=== PATIENT | female | born 1955 | race Caucasian/White ===

== ENCOUNTER 2017-12-02 09:26 | Day surgery (SDC) | payer OTHER ==
[~2017-12-02] VITALS: Ht 170.2 cm; Wt 78.9 kg
[2017-12-02] MEDS ORDERED: CYMBALTA 60MG60 MG PO (10:41)
[2017-12-02] MEDS ORDERED: ARMOUR THYROID60 MG PO (10:42)
[2017-12-02] MEDS ORDERED: TURMERIC500 MG PO (10:42)
[2017-12-02] MEDS ORDERED: LUTEIN20 M1 PO (10:43)
[2017-12-02] MEDS ORDERED: MAGNESIUM250 M1 PO (10:44)
[2017-12-02] MEDS ORDERED: MULTIPLE VITAMI1 TA1 PO (10:45)
[2017-12-02 10:46] VITALS: BP 146/91; PULSE 66; TEMP 97.6
[2017-12-02] MEDS ORDERED: NORCO 325 MG-51 TAB PO (14:02)
[2017-12-02 14:35] VITALS: BP 141/80; PULSE 75; TEMP 97.9
[2017-12-02 14:46] VITALS: TEMP 97.6
[2017-12-02 14:50] VITALS: BP 138/78; PULSE 76
[2017-12-02 15:05] VITALS: BP 134/93; PULSE 82
[2017-12-02 15:20] VITALS: BP 136/87; PULSE 81
== END 2017-12-02 15:30 | disposition home or self-care (01) ==
LOC: SDCO 09:26
DX: D17.24 Benign lipomatous neoplasm of skin and subcutaneous tissue of left leg (principal); D17.23 Benign lipomatous neoplasm of skin and subcutaneous tissue of right leg; D17.21 Benign lipomatous neoplasm of skin and subcutaneous tissue of right arm; D17.22 Benign lipomatous neoplasm of skin and subcutaneous tissue of left arm; G89.29 Other chronic pain; E03.9 Hypothyroidism, unspecified; G43.909 Migraine, unspecified, not intractable, without status migrainosus; M19.90 Unspecified osteoarthritis, unspecified site; F32.9 Major depressive disorder, single episode, unspecified; M79.7 Fibromyalgia; Z83.3 Family history of diabetes mellitus; Z80.7 Family history of other malignant neoplasms of lymphoid, hematopoietic and related tissues
CPT/HCPCS: J0690; J1100; J2405; J2704; J3010; J7120

== ENCOUNTER → 2017-12-22 | Outpatient (CLI) | payer OTHER ==
[~2017-12-22] MED LIST: ARMOUR THYROID60 MG PO; CYMBALTA 60MG60 MG PO; LUTEIN20 M1 PO; MAGNESIUM250 M1 PO; MULTIPLE VITAMI1 TA1 PO; NORCO 325 MG-51 TAB PO; TURMERIC500 MG PO
== END ==
LOC: MC.RAD 09:35
DX: Z12.31 Encounter for screening mammogram for malignant neoplasm of breast (principal)

== ENCOUNTER → 2018-12-22 | Outpatient (CLI) | payer MEDICARE | LOC: MC.RAD 09:52 | DX: Z12.31 Encounter for screening mammogram for malignant neoplasm of breast (principal); N63.10 Unspecified lump in the right breast, unspecified quadrant ==

== ENCOUNTER → 2018-12-30 | Outpatient (CLI) | payer MEDICARE | LOC: MC.RAD 09:49 | DX: N63.10 Unspecified lump in the right breast, unspecified quadrant (principal) ==

== ENCOUNTER → 2019-07-05 | Outpatient (CLI) | payer MEDICARE | LOC: MC.RAD 08:47 | DX: N63.14 Unspecified lump in the right breast, lower inner quadrant (principal) ==

== ENCOUNTER → 2020-01-07 | Outpatient (CLI) | payer MEDICARE | LOC: MC.RAD 10:25 | DX: Z12.31 Encounter for screening mammogram for malignant neoplasm of breast (principal); N64.89 Other specified disorders of breast ==

== ENCOUNTER → 2021-04-10 | Outpatient (CLI) | payer MEDICARE | LOC: MC.RAD 08:58 | DX: Z12.31 Encounter for screening mammogram for malignant neoplasm of breast (principal) ==

== ENCOUNTER → 2022-01-29 | Outpatient (CLI) | payer MEDICARE | LOC: COL.RAD 13:37 | DX: M51.16 Intervertebral disc disorders with radiculopathy, lumbar region (principal); M51.17 Intervertebral disc disorders with radiculopathy, lumbosacral region; M48.061 Spinal stenosis, lumbar region without neurogenic claudication; M48.07 Spinal stenosis, lumbosacral region ==

== ENCOUNTER → 2023-05-05 | Outpatient (CLI) | payer MEDICARE | LOC: COL.RAD 12:38 | DX: R91.8 Other nonspecific abnormal finding of lung field (principal); K44.9 Diaphragmatic hernia without obstruction or gangrene; J18.9 Pneumonia, unspecified organism | CPT/HCPCS: Q9967 ==

== ENCOUNTER 2023-07-23 11:43 | Emergency (ER) | payer MEDICARE ==
[~2023-07-23] VITALS: Ht 167.6 cm; Wt 78.6 kg
[2023-07-23 11:49] VITALS: TEMP 97.7
[2023-07-23] MEDS ORDERED: Iohexol 300 - 100 ML VIAL IV ONE (12:30)
[2023-07-23] MEDS ORDERED: NS 100 ML IV SCH (12:30)
[2023-07-23 12:32] LABS: BASO # 0.1 K/mm3 (0.0-0.2); BASO % 1.4 % (0.0-2.0); EOS # 0.2 K/mm3 (0.0-0.7); EOS % 3.2 % (0.0-4.0); GRAN # 3.4 K/mm3 (1.4-6.5); GRAN % 60.7 % (42.2-75.2); HEMATOCRIT 41.2 % (37.0-47.0); HEMOGLOBIN 13.5 g/dl (12.5-16.0); LYMPH # 1.4 K/mm3 (1.2-3.4); LYMPH % 24.6 % (20.0-51.0); MEAN CELL VOLUME 92 fl (80.0-100.0); MEAN CORPUSCULAR HEMOGLOBIN 30 pg (27-31); MEAN CORPUSCULAR HGB CONC 33 g/dl (33.0-37.0); MEAN PLATELET VOLUME 11.3 fl (7.4-10.4); MONO # 0.6 K/mm3 (0.1-0.6); MONO % 9.7 % (1.7-9.3); PLATELET COUNT 284 K/mm3 (130-400); RED BLOOD COUNT 4.47 M/mm3 (4.10-5.30); REDCELL DISTRIBUTION WIDTH-CV 15.2 % (11.5-14.5)
[2023-07-23 12:39] LABS: ALBUMIN 3.8 gm/dL (3.4-4.8); BILIRUBIN,TOTAL 0.4 mg/dL (0.2-1.2); CALCIUM 9.6 mg/dL (8.4-10.2); CREATININE, serum 0.93 mg/dL (0.57-1.11); POTASSIUM 4.3 mmol/L (3.5-4.5); TOTAL PROTEIN 6.7 gm/dL (6.2-8.1)
[2023-07-23 13:33] VITALS: BP 138/93; PULSE 77
== END 2023-07-23 13:33 | disposition home or self-care (01) ==
LOC: COL.ER 11:43
PROVIDERS: Family Medicine
DX: G62.9 Polyneuropathy, unspecified (principal); Z87.891 Personal history of nicotine dependence
CPT/HCPCS: Q9967